=== PATIENT | female | born 1960 | race Caucasian/White ===

== ENCOUNTER 2022-03-06 09:44 | Observation (INO) ==
[2022-03-06] MEDS ORDERED: Iopamidol - 370 500 ML MLS IVP ONE (10:14)
[2022-03-06] MEDS ORDERED: Ondansetron 4 MG/2 ML VIAL IVP ONE (10:17)
[2022-03-06] MEDS ORDERED: 0.9 % Sodium Chloride 500 ML IVC ONE (10:18)
[2022-03-06] MEDS ORDERED: Famotidine 20 MG/2 ML VIAL IVP ONE (10:29)
[2022-03-06 10:48] LABS: Hematocrit 26.9 % (35.3-44.9); Hemoglobin 9.3 g/dL (11.5-15.4); Mean Corpuscular HGB Conc 34.6 g/dL (31.6-35.5); Mean Corpuscular Hemoglobin 29.7 pg (28.0-33.3); Mean Corpuscular Volume 85.9 fL (83.0-100.0); Mean Platelet Volume 9.6 fL (9.4-12.4); Platelet Count 126 K/mcL (140-400); Red Blood Count 3.13 M/mcL (3.82-4.97); Red Cell Distribution Width 11.9 % (11.5-14.5); White Blood Count 9.1 K/mcL (4.3-11.1)
[2022-03-06 11:14] LABS: Lymphocytes # 0.4 K/mcL (0.6-4.6); Monocytes # 0.4 K/mcL (0.0-1.3); Neutrophils # 8.4 K/mcL (1.6-8.9)
[2022-03-06 11:15] LABS: Platelet Estimate Normal (Normal)
[2022-03-06 11:15] LABS: Albumin 2.9 g/dL (3.5-5.7); Bilirubin,Direct 0.2 mg/dL (0.0-0.2); Bilirubin,Indirect 0.3 mg/dL (0.0-1.0); Bilirubin,Total 0.5 mg/dL (0.3-1.0); Calcium 7.8 mg/dL (8.6-10.3); Globulin 2.9 g/dL (2.4-3.5); Magnesium 1.7 mg/dL (1.6-2.6); Total Protein 5.8 g/dL (6.4-8.9); Troponin I 0.23 ng/mL (< 0.04)
[2022-03-06 11:57] LABS: Hepatitis B Surface Antigen Nonreactive (Nonreactive)
[2022-03-06] MEDS ORDERED: POTASSIUM CHLORIDE IN 0.9%NACL 40 MEQ/1,000 ML IV.SOLN IV ONE (11:59)
[2022-03-06 12:16] LABS: Bacteria,Urine Moderate per hpf (None-Few); Bilirubin,Urine Negative (Negative); Blood,Urine Moderate (Negative); Clarity,Urine Turbid (Clear); Color,Urine Yellow (Yellow); Glucose,Urine (UA) Normal (Normal); Ketones,Urine 10 mg/dL (Negative); Leukocyte Esterase,Urine Large (Negative); Mucus,Urine Few per lpf (None-Few); Nitrite,Urine Negative (Negative); PH,Urine 6.5 pH Units (5.0-8.0); Protein,Urine 200 mg/dL (Neg-Trace); Renal Epithelial Cells,Urine Few per hpf (None-Few); Specific Gravity,Urine 1.012 (1.010-1.025); Squamous Epithelial Cell,Urine Few per hpf (None-Few); Transitional Epi Cells,Urine Few per hpf (None-Few); WBC,Urine TNTC per hpf (0-3)
[2022-03-06 12:26] LABS: Hepatitis C Virus Antibody Nonreactive (Nonreactive)
[2022-03-06 12:27] LABS: Hepatitis B Core IgM Nonreactive (Nonreactive)
[2022-03-06 12:28] LABS: Hepatitis A Antibody IgM Nonreactive (Nonreactive)
[2022-03-06] MEDS ORDERED: cefTRIAXone 1,000 MG in 0.9 % Sodium Chloride Mini Bag 100 ML IVPB ONE (13:12)
[2022-03-06 13:25] LABS: Influenza A PCR Negative (Negative); Influenza B PCR Negative (Negative); Resp. Syncytial Virus PCR Negative (Negative)
[2022-03-06] MEDS ORDERED: Metoclopramide 10 MG/2 ML VIAL IVP ONE (13:36)
[2022-03-06 13:45] LABS: SARS-CoV-2 by PCR (In House) Negative (Negative)
[2022-03-06] MEDS: POTASSIUM CHLORIDE 10 MEQ/100 ML IVPB SCH ×2 (13:47→14:49)
[2022-03-06] MEDS ORDERED: Aspirin 81 MG TAB.CHEW PO ONE (14:23)
[2022-03-06] MEDS ORDERED: Naloxone 0.4 MG/ML INJ IVP PRN ×2 (14:44→15:29)
[2022-03-06] MEDS ORDERED: Melatonin 3 MG TABLET PO PRN (14:44)
[2022-03-06] MEDS ORDERED: 0.9 % Sodium Chloride 1,000 ML IVC ONE (15:27)
[2022-03-06] MEDS ORDERED: 0.9 % Sodium Chloride 1,000 ML IVC SCH (15:30)
[2022-03-06] MEDS ORDERED: *HR* OxyCODONE Immed Rel 5 MG TABLET PO PRN (15:57)
[2022-03-06] MEDS ORDERED: *HR* Heparin 5,000 UNIT/ML VIAL IVP ONE (16:27)
[2022-03-06] MEDS ORDERED: *HR* Heparin 5,000 UNIT/ML VIAL IVP PRN (16:27)
[2022-03-06 17:01] LABS: Phosphorous 1.9 mg/dL (2.7-4.5)
[2022-03-06 17:08] LABS: Troponin I 0.52 ng/mL (< 0.04)
[2022-03-06] MEDS: *HR* Promethazine 25 MG/ML VIAL IM PRN (17:28)
[2022-03-06] MEDS: Ondansetron 4 MG/2 ML VIAL IVP PRN (18:54)
[2022-03-06 19:57] LABS: Hematocrit 26.7 % (35.3-44.9); Mean Corpuscular HGB Conc 33.7 g/dL (31.6-35.5); Mean Corpuscular Volume 86.1 fL (83.0-100.0); Mean Platelet Volume 10.3 fL (9.4-12.4); Platelet Count 130 K/mcL (140-400); Red Cell Distribution Width 12.3 % (11.5-14.5); White Blood Count 7.9 K/mcL (4.3-11.1)
[2022-03-06 20:21] LABS: Activated Partial Thrombo Time 27.8 Seconds (26.0-36.0); Heparin anti-factor XA UFH < 0.04 IU/mL (0.30-0.70); INR 1.1; Prothrombin Time 12.5 Seconds (9.4-12.1)
[2022-03-06 20:23] LABS: Troponin I 0.42 ng/mL (< 0.04)
[2022-03-06 20:30] LABS: Thyroid Stimulating Hormone 0.665 mcIU/mL (0.340-5.600)
[2022-03-06] MEDS: Heparin 25,000UNIT/250ML 1/2NS 25,000 UNIT/250 ML IV.SOLN IVC SCH (21:03)
[2022-03-07 03:49] LABS: Basophils % 0.2 %; Hematocrit 23.6 % (35.3-44.9); Hemoglobin 7.8 g/dL (11.5-15.4); Immature Granulocytes % 0.5 % (0-4); Lymphocytes # 0.5 K/mcL (0.6-4.6); Lymphocytes % 8.2 %; Mean Corpuscular HGB Conc 33.1 g/dL (31.6-35.5); Mean Corpuscular Hemoglobin 29.2 pg (28.0-33.3); Mean Corpuscular Volume 88.4 fL (83.0-100.0); Monocytes # 0.5 K/mcL (0.0-1.3); Monocytes % 6.8 %; Neutrophils # 5.6 K/mcL (1.6-8.9); Platelet Count 116 K/mcL (140-400); Red Blood Count 2.67 M/mcL (3.82-4.97); Red Cell Distribution Width 12.6 % (11.5-14.5); Segmented Neutrophils % 84.3 %; White Blood Count 6.6 K/mcL (4.3-11.1)
[2022-03-07 03:58] LABS: INR 1.1; Prothrombin Time 12.8 Seconds (9.4-12.1)
[2022-03-07 04:02] LABS: Calcium 6.4 mg/dL (8.6-10.3); Magnesium 1.6 mg/dL (1.6-2.6); Phosphorous 1.8 mg/dL (2.7-4.5); Potassium 2.8 mEq/L (3.5-5.1)
[2022-03-07 04:03] LABS: Platelet Estimate Slight Decrease (Normal)
[2022-03-07] MEDS: *HR* Heparin 5,000 UNIT/ML VIAL IVP PRN ×2 (04:18→13:40)
[2022-03-07] MEDS: Ondansetron 4 MG/2 ML VIAL IVP PRN ×2 (04:32→20:02)
[2022-03-07 04:57] LABS: Estimated Average Glucose 111 mg/dl; Hemoglobin A1C 5.5 %
[2022-03-07 06:28] LABS: A.calcoaceticus-baumannii cplx Not Detected (Not Detect); Bacteroides fragilis by PCR Not Detected (Not Detect); CTX-M ESBL Gene Not Detected (Not Detect); Enterococcus faecalis by PCR Not Detected (Not Detect); Enterococcus faecium by PCR Not Detected (Not Detect); IMP Carbapenem-Resist Gene Not Detected (Not Detect); NDM Carbapenem-Resist Gene Not Detected (Not Detect); OXA-48-like Carbap-Resist Gene Not Detected (Not Detect); Staph epidermidis by PCR Not Detected (Not Detect); Staph lugdunensis by PCR Not Detected (Not Detect); Staphylococcus aureus by PCR Not Detected (Not Detect); Staphylococcus by PCR Not Detected (Not Detect); Streptococcus agalactiae(B)PCR Not Detected (Not Detect); Streptococcus by PCR Not Detected (Not Detect); Streptococcus pneumoniae PCR Not Detected (Not Detect); Streptococcus pyogenes (A) PCR Not Detected (Not Detect); VIM Carbapenem-Resist Gene Not Detected (Not Detect); blaKPC Carbapenem-Resist Gene Not Detected (Not Detect); mcr-1 Colistin-Resist Gene Not Detected (Not Detect)
[2022-03-07 06:29] LABS: Candida albicans by PCR Not Detected (Not Detect); Candida auris by PCR Not Detected (Not Detect); Candida glabrata by PCR Not Detected (Not Detect); Candida krusei by PCR Not Detected (Not Detect); Candida parapsilosis by PCR Not Detected (Not Detect); Candida tropicalis by PCR Not Detected (Not Detect); Crypto. neoformans/gattii PCR Not Detected (Not Detect); Enterobacter cloacae Cmplx PCR Not Detected (Not Detect); Escherichia coli by PCR DETECTED (Not Detect); Klebs. pneumoniae group by PCR Not Detected (Not Detect); Klebsiella aerogenes by PCR Not Detected (Not Detect); Klebsiella oxytoca by PCR Not Detected (Not Detect); Proteus by PCR Not Detected (Not Detect); Pseudomonas aeruginosa by PCR Not Detected (Not Detect); Salmonella species by PCR Not Detected (Not Detect); Serratia marcescens by PCR Not Detected (Not Detect); Stenotrophomonas maltophilia Not Detected (Not Detect)
[2022-03-07] MEDS: cefTRIAXone 2,000 MG in 0.9 % Sodium Chloride 20 ML IVP SCH (08:37)
[2022-03-07] MEDS: Acetaminophen 325 MG TABLET PO PRN ×2 (08:37→21:54)
[2022-03-07] MEDS ORDERED: cefTRIAXone 1,000 MG in 0.9 % Sodium Chloride 10 ML IVP SCH (09:00)
[2022-03-07] MEDS: Calcium Gluconate 1gm/50mL 1 GM/50 ML BAG IVPB SCH ×2 (10:28→12:25)
[2022-03-07] MEDS: Aspirin Enteric Coated 81 MG Tablet PO SCH (10:37)
[2022-03-07] MEDS: *HR* Promethazine 25 MG/ML VIAL IM PRN (17:59)
[2022-03-07] MEDS: Heparin 25,000UNIT/250ML 1/2NS 25,000 UNIT/250 ML IV.SOLN IVC SCH (17:59)
[2022-03-07 19:36] LABS: Hematocrit 27.4 % (35.3-44.9); Hemoglobin 9.3 g/dL (11.5-15.4)
[2022-03-07 20:16] LABS: Calcium 8.3 mg/dL (8.6-10.3); Potassium 3.5 mEq/L (3.5-5.1)
[2022-03-08] MEDS: *HR* Promethazine 25 MG/ML VIAL IM PRN (03:10)
[2022-03-08] MEDS: Ondansetron 4 MG/2 ML VIAL IVP PRN (04:18)
[2022-03-08 06:24] LABS: Basophils % 0.3 %; Eosinophils % 0.1 %; Hematocrit 27.5 % (35.3-44.9); Hemoglobin 9.4 g/dL (11.5-15.4); Immature Granulocytes % 0.9 % (0-4); Lymphocytes # 0.7 K/mcL (0.6-4.6); Lymphocytes % 9.7 %; Mean Corpuscular HGB Conc 34.2 g/dL (31.6-35.5); Mean Corpuscular Hemoglobin 29.2 pg (28.0-33.3); Mean Corpuscular Volume 85.4 fL (83.0-100.0); Mean Platelet Volume 9.8 fL (9.4-12.4); Monocytes # 0.4 K/mcL (0.0-1.3); Monocytes % 6.2 %; Neutrophils # 5.7 K/mcL (1.6-8.9); Platelet Count 158 K/mcL (140-400); Red Blood Count 3.22 M/mcL (3.82-4.97); Red Cell Distribution Width 12.9 % (11.5-14.5); Segmented Neutrophils % 82.8 %; White Blood Count 6.9 K/mcL (4.3-11.1)
[2022-03-08 06:42] LABS: Albumin 3.1 g/dL (3.5-5.7); Bilirubin,Direct 0.1 mg/dL (0.0-0.2); Bilirubin,Indirect 0.3 mg/dL (0.0-1.0); Bilirubin,Total 0.4 mg/dL (0.3-1.0); Calcium 8.4 mg/dL (8.6-10.3); Potassium 3.4 mEq/L (3.5-5.1); Total Protein 6.1 g/dL (6.4-8.9)
[2022-03-08] MEDS: Ondansetron 4 MG/2 ML VIAL IVP SCH ×2 (10:48→18:16)
[2022-03-08 10:49] LABS: Magnesium 2.1 mg/dL (1.6-2.6); Phosphorous 2.1 mg/dL (2.7-4.5)
[2022-03-08] MEDS: Aspirin Enteric Coated 81 MG Tablet PO SCH (10:50)
[2022-03-08] MEDS: cefTRIAXone 2,000 MG in 0.9 % Sodium Chloride 20 ML IVP SCH (10:51)
[2022-03-08] MEDS: *HR* HYDROcodone/Acet 5/325 mg TABLET PO PRN ×2 (11:02→18:16)
[2022-03-08] MEDS ORDERED: Ondansetron 4 MG/2 ML VIAL IVP SCH (12:00)
[2022-03-08] MEDS: Acetaminophen 325 MG TABLET PO PRN (22:24)
[2022-03-09] MEDS: Ondansetron 4 MG/2 ML VIAL IVP SCH ×2 (00:41→05:30)
[2022-03-09 03:51] VITALS: O2SAT 94
[2022-03-09 04:13] LABS: Basophils % 0.5 %; Eosinophils # 0.1 K/mcL (0.0-0.6); Hematocrit 25.9 % (35.3-44.9); Hemoglobin 8.7 g/dL (11.5-15.4); Immature Granulocytes % 1.3 % (0-4); Lymphocytes # 0.8 K/mcL (0.6-4.6); Mean Corpuscular HGB Conc 33.6 g/dL (31.6-35.5); Mean Corpuscular Hemoglobin 29.1 pg (28.0-33.3); Mean Corpuscular Volume 86.6 fL (83.0-100.0); Mean Platelet Volume 10.3 fL (9.4-12.4); Monocytes # 0.6 K/mcL (0.0-1.3); Monocytes % 9.1 %; Neutrophils # 4.8 K/mcL (1.6-8.9); Platelet Count 189 K/mcL (140-400); Red Blood Count 2.99 M/mcL (3.82-4.97); Red Cell Distribution Width 13.1 % (11.5-14.5); Segmented Neutrophils % 76.1 %; White Blood Count 6.3 K/mcL (4.3-11.1)
[2022-03-09] MEDS: Acetaminophen 325 MG TABLET PO PRN (05:29)
[2022-03-09] MEDS: cefTRIAXone 2,000 MG in 0.9 % Sodium Chloride 20 ML IVP SCH (08:58)
[2022-03-09] MEDS: Aspirin Enteric Coated 81 MG Tablet PO SCH (09:05)
[2022-03-09] MEDS: *HR* HYDROcodone/Acet 5/325 mg TABLET PO PRN (09:12)
[2022-03-09 11:00] VITALS: BP 134/81; PULSE 80; TEMP 98.4
== END 2022-03-09 13:00 | disposition home or self-care (01) ==
LOC: 3NENU 09:44 → EMEROOARM 09:44 → SUATTDRO 16:29 → 3NENU 18:02
PROVIDERS: ADMIT Pharmacist; ATTEND Internal Medicine